=== PATIENT | male | born 1960 ===

== ENCOUNTER → 2018-05-06 19:08 | Outpatient (REF) | payer OTHER, SELFPAY ==
[2018-05-06 19:25] LABS: Add Manual Diff / Slide Review NO; Basophils Percent Auto 0.7 % (0-2); Eosinophils Percent Auto 2.6 % (2-4); Hemoglobin 17.6 g/dL (13.5-17.5); Lymphocytes Percent Auto 31.2 % (25-40); Mean Corpuscular HGB Conc 34.5 % (30-36); Mean Corpuscular Hemoglobin 30.1 PG (26-34); Mean Corpuscular Volume 87.3 fL (80-100); Monocytes Percent Auto 5.9 % (3-14); Neutrophils Absolute Auto 5500 /uL (3000-5900); Neutrophils Percent Auto 59.6 % (50-75); Platelet Count 256 X10^3/uL (150-400); Red Blood Cell Count 5.84 X10^6/uL (4.5-5.9); Red Cell Distribution Width 13.5 % (11.6-14.8); White Blood Cell Count 9.2 X10^3/uL (4.5-11.0)
[2018-05-06 19:32] LABS: HEMOLYSIS < 15 (0-50); Iron 137 ug/dL (49-181)
[2018-05-06 19:34] LABS: Alanine Aminotransferase 55 IU/L (21-72); Albumin 4.9 g/dL (3.5-5.0); Albumin Globulin Ratio 1.5 (1.0-2.8); Alkaline Phosphatase 99 U/L (38-126); Aspartate Aminotransferase 31 IU/L (17-59); Bilirubin Total 1.5 mg/dL (0.2-1.3); Blood Urea Nitrogen 16 mg/dL (9-20); Calcium 9.7 mg/dL (8.4-10.2); Carbon Dioxide 28 mmol/L (22-32); Chloride 101 mmol/L (98-107); Cholesterol 197 mg/dL (140-199); Estimated Glomerular Filt Rate > 60.0 mL/min (>60); Globulin 3.3 g/dL (1.7-4.1); Glucose 192 mg/dL (70-100); HDL Cholesterol 40 mg/dL (40-60); HEMOLYSIS < 15 (0-50); LDL Cholesterol Calculated 109 mg/dL (<100); Potassium 4.5 mmol/L (3.4-5.1); Sodium 144 mmol/L (137-145); Total Protein 8.2 g/dL (6.3-8.2); Triglycerides 241 mg/dL (35-150)
[2018-05-06 19:44] LABS: Hemoglobin A1C% w Est Avg Glu 7.7 % (4.0-6.0); Percent Iron Saturation 46 % (20-50); Total Iron Binding Capacity 298 ug/dL (261-462); Transferrin 250 mg/dL (206-381)
== END ==
LOC: LAB 19:08
PROVIDERS: Visit Provider Nurse Practitioner Acute Care
DX: I10 Essential (primary) hypertension (principal); R73.01 Impaired fasting glucose
CPT/HCPCS: 80053; 80061; 83036; 83540; 83550; 85025

== ENCOUNTER → 2018-09-26 19:33 | Outpatient (REF) | payer OTHER, SELFPAY ==
[2018-09-26 19:50] LABS: Cholesterol 168 mg/dL (140-199); HDL Cholesterol 38 mg/dL (40-60); LDL Cholesterol Calculated 84 mg/dL (<100); Triglycerides 231 mg/dL (35-150)
[2018-09-26 19:54] LABS: Hemoglobin A1C% w Est Avg Glu 7.8 % (4.0-6.0)
== END ==
LOC: LAB 19:33
PROVIDERS: Visit Provider Nurse Practitioner Acute Care
DX: R73.01 Impaired fasting glucose (principal); I10 Essential (primary) hypertension; E78.1 Pure hyperglyceridemia
CPT/HCPCS: 80061; 83036